=== PATIENT | female | born 1950 | race Caucasian/White ===

== ENCOUNTER 2021-05-26 20:23 | Emergency (ER) | payer MEDICARE, OTHER ==
[2021-05-26] MEDS ORDERED: Lactated Ringers 1,000 ML IV ONE (20:44)
== END 2021-05-26 23:11 | disposition home or self-care (01) ==
LOC: JD.ED 20:23
DX: R55 Syncope and collapse (principal); E86.0 Dehydration; Z79.82 Long term (current) use of aspirin; Z79.899 Other long term (current) drug therapy
CPT/HCPCS: 36415; 80053; 84484; 85025; 93005; 99284; J7120; 93010; 99285